=== PATIENT | female | born 1965 | race Caucasian/White ===

== ENCOUNTER 2021-01-11 09:24 | Outpatient (CLI) | payer MEDICAID ==
[2021-01-11] MEDS ORDERED: GADOTERATE 10 MMOL/20 ML VIAL ONE (10:00)
== END 2021-01-11 23:59 | disposition home or self-care (01) ==
LOC: RAD 09:24
PROVIDERS: ATTEND Obstetrics & Gynecology Female Pelvic Medicine and Reconstructive Surgery
DX: N89.8 Other specified noninflammatory disorders of vagina (principal); N36.1 Urethral diverticulum
CPT/HCPCS: 72197; 74183; A9575